=== PATIENT | female | born 1945 | race Caucasian/White ===

== ENCOUNTER 2020-03-27 08:18 | Outpatient (REF) | payer MEDICARE, SELFPAY | END 2020-03-27 08:19 | disposition home or self-care (01) | LOC: HO.WFDLDS 08:18 | PROVIDERS: PCP Internal Medicine; Visit Provider Internal Medicine | DX: Z20.828 Contact with and (suspected) exposure to other viral communicable diseases (principal) | CPT/HCPCS: C9803; U0003 ==

== ENCOUNTER 2020-04-24 09:19 | Outpatient (REF) | payer MEDICARE, SELFPAY | END 2020-04-24 09:20 | disposition home or self-care (01) | LOC: HO.WFDLDS 09:19 | PROVIDERS: Visit Provider Internal Medicine | DX: Z20.822 Contact with and (suspected) exposure to COVID-19 (principal) | CPT/HCPCS: 36415; C9803; U0003 ==

== ENCOUNTER 2025-01-07 13:49 | Outpatient (REF) | payer MEDICARE, SELFPAY ==
[2025-01-07 17:35] LABS: Hematocrit 34.1 % (37.0-47.0); Hemoglobin 11.6 g/dl (12.0-16.0); Mean Corpuscular HGB Conc 34.0 g/dl (31.0-35.0); Mean Corpuscular Hemoglobin 31.0 pg (27.0-33.0); Mean Corpuscular Volume 91.2 fL (80.0-98.0); NRBC Abs Auto 0.000 X10*3/uL (0.0-0.012); NRBC Pct Auto 0.0 /100WBC (0.0-0.2); Platelet Count 381 X10*3/uL (160-400); Red Blood Count 3.74 X10*6/uL (4.20-5.50); White Blood Count 4.9 X10*3/uL (4.8-10.8)
[2025-01-07 17:59] LABS: Alanine Aminotransferase 14 U/L (0-31); Albumin Level 4.5 g/dL (3.5-5.0); Alkaline Phosphatase 57 U/L (39-117); Anion Gap 13 (12-20); Aspartate Amino Transferase 29 U/L (5-31); Blood Urea Nitrogen 15 mg/dL (9-16); Calcium 9.0 mg/dL (8.4-10.2); Carbon Dioxide 27 mmol/L (22-29); Chloride 102 mmol/L (96-108); Cholesterol 194 mg/dL (<200); Estimated Glomerular Filt Rate > 60; HDL Cholesterol 80 mg/dL (>40); Potassium 3.8 mmol/L (3.3-5.1); Sodium 138 mmol/L (135-145); Total Protein 7.3 g/dL (6.5-8.0); Triglycerides 53 mg/dL (<150)
[2025-01-07 18:22] LABS: Folate 11.4 ng/mL (> or = 4.0); Vitamin B12 1344 pg/mL (200-900)
== END 2025-01-07 13:50 | disposition home or self-care (01) ==
LOC: HO.WFDLDS 13:49
PROVIDERS: PCP Nurse Practitioner Family; Visit Provider Nurse Practitioner Family
DX: Z00.00 Encounter for general adult medical examination without abnormal findings (principal); I25.10 Atherosclerotic heart disease of native coronary artery without angina pectoris; M85.80 Other specified disorders of bone density and structure, unspecified site; N95.2 Postmenopausal atrophic vaginitis; M85.89 Other specified disorders of bone density and structure, multiple sites; M79.662 Pain in left lower leg; M79.89 Other specified soft tissue disorders; L03.116 Cellulitis of left lower limb; Z23 Encounter for immunization; Z78.0 Asymptomatic menopausal state; Z76.89 Persons encountering health services in other specified circumstances; Z92.89 Personal history of other medical treatment; Z80.0 Family history of malignant neoplasm of digestive organs; Z98.890 Other specified postprocedural states; Z13.1 Encounter for screening for diabetes mellitus
CPT/HCPCS: 36415; 80053; 80061; 82306; 82570; 82607; 82746; 83036; 84443; 85027; 90471; 90656; 96127; 99202

== ENCOUNTER 2025-01-07 13:49 | Outpatient (AMB) | payer MEDICARE, SELFPAY ==
--- NOTE | 2025-01-07 13:53 | MHC.PC.OV ---
Vital Signs 01/07/25 14:06 Height 5 ft 2 in Weight 142 lb 4 oz BMI 26.0 BP 138/76 Blood Pressure Location Lt brachial Position Sitting Respiration 13 Pulse 72 Pulse Source Pulse Oximeter Temp 97.1 F Temp Source Oral Pulse Oximetry (%) 100 Oxygen Delivery Method Room Air Intake Visit Reasons: new patient appt/ 2pm Tuesday01/07/25 Intake Note: New patient to establish care. Ceramic Tiler Required: No Allergies Penicillins Allergy (Mild, Verified 01/07/25 15:31) Rash Medication List - Last Reviewed 01/07/25 by Krunal Herbert MA estradiol (Yuvafem) 10 mcg vaginal 2XW estradiol 1 patch transdermal 2XW progesterone micronized 100 mg PO QPM simvastatin 40 mg PO BEDTIME Tobacco use date assessed: 01/07/25 Fall risk assessment: 1 Fall in past year (trip over a stool) Last assessed Fall Risk: 01/07/25 Dental Screening Dental Screen Date: 01/07/25 Did you have a dental visit in the last 12 months?: Yes Did you have a dental problem in the last 6 months where you did not have access to dental care?: No Was dental information given to patient?: Patient has dentist HPI HPI Comments History of Present Illness Details 79 y/o F with menopause, atrophic vaginitis, hx of NSTEMI, CAD s/p CABG, Osteopenia, hx of compression fractures, fhx pancreatic ca SurgHx: coronary bypass graft with ZARCO to LAD 2016, tubal ligation, bladder sling, FHx: Mom pancreatic ca, Dad [place], Bro [place] SocHx: Works at [employer], , Health Maintenance: See scanned preventative medicine assessment with personalized health plan and screening schedule. Colon: 2020 Mammo 02/2024 wnl DEXA 12/2023 PAP Vaccines: Tdap 2023, Flu 01/07/25 AAA screen EKG: [place] of Care: Cards, Dr Rubin FURNACE CHARGER History of Present Illness The patient is a 79-year-old female presenting with Establish Care and Evaluation of Fall-related Injury. Previous PCP [facility], records rec'd and reviewed. Coronary Artery Disease: - CABG in 2017 - Maintained on simvastatin - active w/ Dr Rubin Menopause with Atrophic Vaginitis: - Estradiol use, patch discontinued - Needs refill Fall-related Injury with Laceration and Bruising, LLE - Injury 3 weeks ago - Persistent soreness and warmth - Morning ankle swelling Review of Systems - Cardiovascular: Denies chest pain, shortness of breath. - Musculoskeletal: Reports bruise, soreness, and swelling in fall-injured area. - Skin: Reports injury site warmth. - Allergic/Immunologic: History of penicillin allergy causing rash. - Genitourinary: Reports vaginal estradiol use. Physical Exam General: Well developed, well nourished, in no acute distress. Appears stated age. Head: Normocephalic, atraumatic. Eyes: Pupils are equal, round and reactive to light and accommodation. Conjunctivae are clear. Lungs: Clear to auscultation bilaterally. No rales, rhonchi or wheeze noted. Good air flow in all munoz. Heart: Regular rate and rhythm. No murmurs, click, rubs or gallops are noted. Musculoskeletal: Joints are nontender, without swelling, redness, or effusions. Pulses: Peripheral pulses are decreased on the left side. Normal PP on R Extremities: No clubbing, cyanosis. Swelling noted in the left ankle, with bruising and warmth. No edema noted elsewhere. Large skin flap injury to anterior Left lower leg w/ erythema and warmth. Psych: Mood and affect appropriate. Results Pendng Discussion Notes I discussed the management of the fall-related injury with the patient, emphasizing the potential for underlying infection and the need for further evaluation. We reviewed the risks and benefits of initiating an antibiotic regimen with doxycycline due to her history of penicillin allergy. The potential concern for a clot was addressed, and I recommended an ultrasound to definitively rule out thrombosis. I explained that this should be performed promptly at [facility] or [facility] based on appointment availability. The necessity of keeping the injury site clean, properly covered, and monitored for worsening symptoms was highlighted. She consented to receive a flu shot and is updated on her preventative health measures. We also reviewed the importance of maintaining follow-up care and scheduling any necessary appointments. Patient was given time to ask questions. All questions were answered to their satisfaction. Assessment and Plan 1. Coronary Artery Disease - Continue simvastatin. - Await additional medication approval. - Cont care w/ Dr Ruibn 2. Menopause with Atrophic Vaginitis - Continue vaginal estradiol. - Refill sent 3. Fall-related Injury with Laceration and Bruising - Initiate doxycycline x 7 days - Tdap UtD - Recommend ultrasound to r/o DVT Patient Instructions - Take doxycycline as prescribed with food. - Keep the injury site clean and covered. - Observe for increased redness, swelling, or warmth. - Arrange for an ultrasound at [facility] or [place]. - Receive the flu shot administered today. - Follow preventative care and schedule follow-up appointments. - RTO 4-6 weeks for AWV sooner PRN Consent Patient was informed and verbally consented to the use of an ambient scribe for clinic note documentation during this visit. Total time spent caring for the patient today was 45 minutes. This includes time spent before the visit reviewing the chart, time spent during the visit, and time spent after the visit on documentation, reviewing laboratory results, diagnostic imaging, medications, performing a medically necessary evaluation, counseling on diagnoses, care coordination, ordering appropriate tests, ordering appropriate medications, review of tests performed by other providers, reporting test results with the patient, communication with other healthcare providers. FORMERLY [facility], [facility] Social History (Updated 01/07/25 @ 13:56 by Krunal Herbert MA) Housing: Condominium Alcohol intake: current Alcohol intake frequency: a few times a month Patient Tobacco Use Status: Never used Tobacco e-Cigarette/Vaping Use: Never Used Second Hand Smoke Exposure: No service: No Current occupational status: retired Current occupational exposures/hazards: No Cognitive needs: No Hearing needs: No Vision needs: No Questionnaire PHQ-9 Over the last 2 weeks, how often have you been bothered by any of the following problems? 1. Little interest or pleasure in doing things: not at all 2. Feeling down, depressed, or hopeless: not at all 3. Trouble falling or staying asleep, or sleeping too much: not at all 4. Feeling tired or having little energy: not at all 5. Poor appetite or overeating: not at all 6. Feeling bad about yourself - or that you are a failure or have let yourself or your family down: not at all 7. Trouble concentrating on things, such as reading the newspaper or watching television: not at all 8. Moving or speaking so slowly that other people could have noticed. Or the opposite - being so fidgety or restless that you have been moving around a lot more than usual: not at all 9. Thoughts that you would be better off or of hurting yourself in some way: not at all Total score: 0 Depression Screening Interpretation: Negative Depression Screening Done: Yes 91473 - PHQ-9 Billing: Yes Source: Developed by Drs. Butch Worrell, Noelle Powell, Gonzalo Velasquez and colleagues, with an educational ole from [employer]. Thrive Questionnaire Date Thrive assessed: 01/07/25 I am a: Patient What is your living situation today?: I have a steady place to live Within the past 12 months, did the food you bought not last and you didn't have the money to get more?: Never true Within the past 12 months, did you worry whether your food would run out before you got money to buy more?: Never true Do you have trouble paying for medicines?: No Do you have trouble getting transportation to medical appointments?: No Do you have trouble paying your heating and electricity bill?: No Do you have trouble taking care of your child, family member or friend?: No Do you have trouble with day-to-day activities such as bathing, preparing meals, shopping, managing finances, etc.?: No Are you currently unemployed and looking for a job?: No Are you interested in more education?: No Please select the resources that you would like help with: None Currently or been in a relationship where the following occur: No concerns reported THRIVE Score: 0 AUDIT C Alcohol Use Questionnaire (AUDIT-C) 1. How often do you have a drink containing alcohol?: 2-3 times a week 2. How many drinks containing alcohol do you have on a typical day when you are drinking?: 1 or 2 3. How often do you have six or more drinks on one occasion?: Never Total Score: 3 KORINA-7 AMB Questionnaire KORINA-7 Date KORINA - 7 assessed: 01/07/25 Feeling nervous, anxious, or on edge: 0 = Not at all Not being able to stop or control worryin = Not at all Worrying too much about different things: 0 = Not at all Trouble relaxin = Not at all Being so restless that it is hard to sit still: 0 = Not at all Becoming easily annoyed or irritable: 0 = Not at all Feeling afraid as if something awful might happen: 0 = Not at all Total KORINA-7 score (0-4 normal; 5-9 mild; 10-14 moderate; 15-21 severe): 0 Source: Developed by Drs. Butch Worrell, Noelle Powell, Gonzalo Velasquez and colleagues, with an educational ole from [employer]. KORINA-7 Assessment Billing KORINA-7 Assessment Tool: KORINA-7 Assessment 30453 Physical exam (Primary Care) Vital Signs: Last Vital Signs Temp 97.1 F 01/07/25 14:06 Pulse 72 01/07/25 14:06 Resp 13 01/07/25 14:06 BP 138/76 01/07/25 14:06 Pulse Ox 100 01/07/25 14:06 Oxygen Delivery Method Room Air 01/07/25 14:06 BMI result Body Mass Index 26.0 Tobacco/Smoking Status: Tobacco use Status Tobacco use date assessed 01/07/25 01/07/25 13:56 Patient Tobacco Use Status Never used Tobacco 01/07/25 13:56 e-Cigarette/Vaping Use Never Used 01/07/25 13:56 PHQ-9: PHQ-9 Score PHQ-9: Total score 0 01/07/25 15:19 Depression Screening Interpretation: Negative Thrive Assessment: Date of Thrive Assessment Date Thrive assessed 01/07/25 01/07/25 13:56 Currently or been in a relationship where the following occur: No concerns reported Office Procedures Flu Questionnaire Does the patient have a severe egg allergy?: No Does the patient have severe life threatening allergies?: No Has the patient ever had Guillain-[place] Syndrome?: No Has the patient ever had any past reaction to a flu shot?: No Immunizations Fluarix [id number] (PF) 45 mcg (15 mcg x 3)/0.5 mL IM syringe Performing Provider: GIA Ac Performing Location: [facility] Administered by: Krunal Herbert MA on 01/07/25 15:19 Dose Route Admin Location Dispensed Lot Number Expiration Date [facility] Business Machine Mechanic 0.5 mL IM Left Deltoid 0.5 mL [id number] 09/24/25 [id number] YASSSU VIS Given Date VIS Provided VIS Publication Date 01/07/25 Single Vaccine 24 Eligibility Eligibility Date Funding Source Not [facility] Eligible 01/07/25 Private Coding Level of Care Code New Pt Level 4 (58217) Complex EM visit Add On G2211 Diagnoses Encounter to establish care with new provider Z76.89 Atrophic vaginitis N95.2 Coronary artery disease involving [place] coronary artery of [place] heart without angina pectoris I25.10 Coronary Disease-Associated Artery/Lesion type: [place] artery [place] vs. transplanted heart: [place] heart Associated angina: without angina S/P CABG x 3 Z95.1 Family history of pancreatic cancer Z80.0 Osteopenia of multiple sites M85.89 Osteopenia location: multiple sites Menopause Z78.0 History of colonoscopy Z98.890 History of mammogram Z92.89 Pain and swelling of left lower leg M79.662; M79.89 Laboratory exam ordered as part of routine general medical examination Z00.00 Influenza vaccination administered at current visit Z23 Cellulitis of left lower extremity L03.116 Additional Codes KORINA-7 Assessment Billing - KORINA-7 Assessment Tool: KORINA-7 Assessment 63624 ([id number]) PHQ-9 - 52962 - PHQ-9 Billing: Yes ([id number]) Assessment & Plan Assessment & Plan (1) Encounter to establish care with new provider: Code(s): Z76.89 - Persons encountering health services in other specified circumstances (2) Atrophic vaginitis: Code(s): N95.2 - Postmenopausal atrophic vaginitis Category: Medical (3) CAD (coronary artery disease): Code(s): I25.10 - Atherosclerotic heart disease of [place] coronary artery without angina pectoris Category: Medical Qualifiers: Coronary Disease-Associated Artery/Lesion type: [place] artery [place] vs. transplanted heart: [place] heart Associated angina: without angina Qualified Code(s): I25.10 - Atherosclerotic heart disease of [place] coronary artery without angina pectoris (4) S/P CABG x 3: Onset Date: ~2017 Comment: coronary bypass graft with ZARCO to LAD 2017, Code(s): Z95.1 - Presence of aortocoronary bypass graft Category: Medical (5) Family history of pancreatic cancer: Code(s): Z80.0 - Family history of malignant neoplasm of digestive organs Category: Medical (6) Osteopenia: Code(s): M85.80 - Other specified disorders of bone density and structure, unspecified site Category: Medical Qualifiers: Osteopenia location: multiple sites Qualified Code(s): M85.89 - Other specified disorders of bone density and structure, multiple sites (7) Menopause: Code(s): Z78.0 - Asymptomatic menopausal state Category: Medical (8) History of colonoscopy: Onset Date: ~2019 Code(s): Z98.890 - Other specified postprocedural states Category: Medical (9) History of mammogram: Onset Date: ~02/2024 Code(s): Z92.89 - Personal history of other medical treatment Category: Medical (10) Pain and swelling of left lower leg: Code(s): M79.662 - Pain in left lower leg; M79.89 - Other specified soft tissue disorders Category: Medical (11) Laboratory exam ordered as part of routine general medical examination: Code(s): Z00.00 - Encounter for general adult medical examination without abnormal findings Category: Medical (12) Influenza vaccination administered at current visit: Code(s): Z23 - Encounter for immunization (13) Cellulitis of left lower extremity: Code(s): L03.116 - Cellulitis of left lower limb Plan . Orders: Orders US venous duplex LE LT Today M79.662 - Pain in left lower leg, M79.89 - Other specified soft tissue disorders Complete Blood Count no Diff Today I25.10 - Atherosclerotic heart disease of [place] coronary artery without angina pectoris, M85.80 - Other specified disorders of bone density and structure, unspecified site, Z00.00 - Encounter for general adult medical examination without abnormal findings Lipid Panel Today I25.10 - Atherosclerotic heart disease of [place] coronary artery without angina pectoris, M85.80 - Other specified disorders of bone density and structure, unspecified site, Z00.00 - Encounter for general adult medical examination without abnormal findings Vitamin B12 and Folate Today I25.10 - Atherosclerotic heart disease of [place] coronary artery without angina pectoris, M85.80 - Other specified disorders of bone density and structure, unspecified site, Z00.00 - Encounter for general adult medical examination without abnormal findings Vitamin D 25-OH Total Today I25.10 - Atherosclerotic heart disease of [place] coronary artery without angina pectoris, M85.80 - Other specified disorders of bone density and structure, unspecified site, Z00.00 - Encounter for general adult medical examination without abnormal findings MM tomosynthesis screening BI Today Z12.31 - Encounter for screening mammogram for malignant neoplasm of breast Influenza [id number] Immunization Today Z23 - Encounter for immunization Comprehensive Met. Panel Today I25.10 - Atherosclerotic heart disease of [place] coronary artery without angina pectoris, M85.80 - Other specified disorders of bone density and structure, unspecified site, Z00.00 - Encounter for general adult medical examination without abnormal findings Hemoglobin A1c Today I25.10 - Atherosclerotic heart disease of [place] coronary artery without angina pectoris, M85.80 - Other specified disorders of bone density and structure, unspecified site, Z00.00 - Encounter for general adult medical examination without abnormal findings Microalbumin, Random (w Creat) Today I25.10 - Atherosclerotic heart disease of [place] coronary artery without angina pectoris, M85.80 - Other specified disorders of bone density and structure, unspecified site, Z00.00 - Encounter for general adult medical examination without abnormal findings TSH reflex Free T4 Today I25.10 - Atherosclerotic heart disease of [place] coronary artery without angina pectoris, M85.80 - Other specified disorders of bone density and structure, unspecified site, Z00.00 - Encounter for general adult medical examination without abnormal findings Medications: New doxycycline hyclate 100 mg PO BID 14 caps 0RF 7 days estradiol (Yuvafem) 10 mcg vaginal 2XW 24 tabs 2RF mecobalamin (vitamin B12) 1,000 mcg PO DAILY calcium carb-mag oxide-vit D3 400-167-133 mg-mg-unit (Calcium Magnesium plus D) 1 tab PO DAILY 90 tabs 0RF Patient Instructions: Walk-In Care (Urgent Care): We Make it Easy Walk-in for urgent medical issues such as: ? Seasonal Allergies ? Insect Bites ? Cough ? Diarrhea ? Acute Asthma Attacks ? Back, Knee or Joint Pain ? Ear Infection ? Fever without a Rash ? Headaches ? Nausea ? [place], Rash or Skin Irritation ? Sore Throat ? Sports Physicals ? Vomiting Most insurances are accepted. Patients do not need to be part of the [place] [facility] to seek care at the walk-in clinic. Locations [address], [place] Open Tuesday through Tuesday 8am-5pm *Hours may vary due to staffing availability. To confirm Walk-In Care hours please call. [facility] [address], [place] [address] ? [phone] [facility] Walk-In Care in [place] provides services to ages 18 and over. Open Tuesday-Tuesday: 7 a.m. to 5 p.m. and Tuesday: 9 a.m. to 3 p.m.* *Hours may vary due to staffing availability. To confirm Walk-In Care hours in [place], please call [phone]. [address] [place] [address] ? [phone] [facility] Walk-In Care in [place] provides services to ages 12 and over. Open Tuesday-Tuesday: 8 a.m. to 5 p.m. Hours may vary due to staffing availability. To confirm Walk-In Care hours in [place], please call [phone]. LABORATORY SERVICES: [facility] Lab ? Primary Location [address] [place] [address] Tuesday through Tuesday 6:00 AM ? 5:00 PM Tuesday 7:00 AM ? 11:00 AM* [phone] The [facility] Lab is centrally located near the front entrance of the [facility] for easy outpatient access. Convenient parking is provided for outpatients. *Hours may vary due to staffing availability. To confirm Laboratory hours for any location, please call [phone]. Offsite Location For your convenience, we offer offsite laboratory draw stations at the following locations: [address] [place] [address] ? [address], [address] Tuesday through Tuesday 7:30 AM ? 1:00 PM* [phone] *Hours may vary due to staffing availability. To confirm Laboratory hours for any location, please call [phone]. [place] ? [address] Tuesday through Tuesday 6:00 AM ? 3:30 PM* Tuesday 6:30 AM ? 3 PM* [phone] *Hours may vary due to staffing availability. To confirm Laboratory hours for any location, please call [phone] [place] [address] Tuesday through Tuesday 7:30 AM ? 4:00 PM* [phone] *Hours may vary due to staffing availability. To confirm Laboratory hours for any location, please call [phone] [place] [address] Tuesday through 9:00 AM ? 4:00 PM* *Hours may vary due to staffing availability. To confirm Laboratory hours for any location, please call [phone]. Appointments are not necessary. Walk-ins are welcome. Like all the departments throughout the [facility], our Lab undergoes frequent reviews to ensure the quality and accuracy of test results, and our staff takes special pride in its status as a nationally accredited facility. Patient Portal: [facility] ONE PATIENT. ONE RECORD. BETTER CARE. [facility] has a fully integrated, cutting-edge mobile electronic health information system that has revolutionized the way we care for our patients and manage our organization. This system improves communication and coordination enabling us to provide safe, higher-quality care, and an overall positive experience for staff and patients. Our first priority, as always, is to deliver the highest quality care possible. The system is running in the background supporting that priority. This portal is for all [facility] services and practices. If you are experiencing any technical difficulties with enrolling or logging into the Patient Portal please complete the [facility] Patient Portal Technical Support Form. [facility] now offers a new secure on-line interactive tool for patients to review their health information ? ?Patient Portal. This interactive web portal will enable patients and their families to take an active role in their care by providing easy, secure access to their health information via the internet. The Patient Portal provides patients with instant access to their health information, including laboratory results, medications, allergies, demographic information, visit history, and more. In addition to managing their own care, parents and health care proxies with authorized consent will appreciate the ability to access the records of those individuals for whom they provide care. Please note: if you wish to gain access (Proxy) to another patient?s portal, you will be required to come to the Medical Records Department in person at [facility]. Both the patient giving proxy access and the proxy will need to provide photo identification and complete the appropriate authorization. The Patient Portal also allows track their appointments online. The [facility] Patient Portal also saves patients time by allowing them to submit updates to their demographic and contact information prior to their visits. Portal email notifications will also alert patients to any new activity on their portal, such as test results and new appointments. In order to initially enroll in the [facility] Patient Portal, you will need to enter some required information including the following: your [facility] Medical Record number your personal home email address name date of Please note: In order to enroll in the [facility] Patient Portal, we need to have your email address on file in your electronic medical record. ?The email address needs to be specific for one person (yourself) in order for your Portal enrollment to be successful. ?You can update your email address in person with our Registration staff when you are registering for a hospital visit. ?Otherwise, you will need to come to the Health Information Management (Medical Records) Department at [facility]. ?We are open from Tuesday ? Tuesday from 7:30 a.m. ? 4:30 p.m. ?You will be required to present a photo id. Once you have successfully enrolled in the Patient Portal, you will receive a one-time user id and password for the Portal, sent to your email address. ?This will allow you to log into the Patient Portal within 99 hrs and reset your own logon id and password, and define personal security questions. ?Once your permanent login and password have been set, you can log into the [facility] Patient Portal at any time via the blue button above or from the Portal [employer] button on any page of the [facility] website. [facility] and [facility] encourage all of our patients to enroll in Patient Portal as it presents a valuable opportunity for patients and their families to actively participate in their care and stay healthy Welcome to [facility]. ?We look forward to working with you.
[2025-01-07 14:06] VITALS: BP 138/76; PULSE 72; RESP 13; TEMP 36.2; O2SAT 100; BMI 26.0
== END 2025-01-07 15:29 | disposition home or self-care (01) ==
LOC: HO.HMCFM 13:50
PROVIDERS: PCP Nurse Practitioner Family; Visit Provider Nurse Practitioner Family
DX: Z76.89 Persons encountering health services in other specified circumstances (principal); N95.2 Postmenopausal atrophic vaginitis; I25.10 Atherosclerotic heart disease of native coronary artery without angina pectoris; Z95.1 Presence of aortocoronary bypass graft; Z80.0 Family history of malignant neoplasm of digestive organs; M85.89 Other specified disorders of bone density and structure, multiple sites; Z78.0 Asymptomatic menopausal state; Z98.890 Other specified postprocedural states; Z92.89 Personal history of other medical treatment; M79.662 Pain in left lower leg; M79.89 Other specified soft tissue disorders; Z00.00 Encounter for general adult medical examination without abnormal findings; Z23 Encounter for immunization; L03.116 Cellulitis of left lower limb

== ENCOUNTER → 2025-01-07 16:15 | Outpatient (BNV) | payer MEDICARE, SELFPAY | PROVIDERS: PCP Nurse Practitioner Family; Visit Provider Radiology Diagnostic Radiology | DX: M79.662 Pain in left lower leg (principal) | CPT/HCPCS: 93971 ==

== ENCOUNTER 2025-01-07 16:19 | Outpatient (REF) | payer MEDICARE, SELFPAY ==
--- NOTE | ~2025-01-07 | US_ITS ---
CLINICAL HISTORY: M79.662 - Pain in left lower leg --- Additional Notes or Special Instructions: DVt R o Left lower extremity venous duplex ultrasound Comparison: None available Findings: The visualized deep veins are fully compressible with normal flow. There is a popliteal cyst measuring 1.6 x 0.6 x 1.4 cm. Impression: No deep vein thrombosis. This document has been electronically signed by: Julia Vu MD on 01/07/2025 17:02:14
== END 2025-01-07 16:20 | disposition home or self-care (01) ==
LOC: HO.US 16:19
PROVIDERS: PCP Nurse Practitioner Family; Visit Provider Nurse Practitioner Family
DX: M79.662 Pain in left lower leg (principal); R60.0 Localized edema
CPT/HCPCS: 93971

== ENCOUNTER 2025-02-13 13:06 | Outpatient (AMB) | payer MEDICARE, SELFPAY ==
--- NOTE | 2025-02-13 13:15 | A.OFFVIS_ITS ---
Intake Vital Signs 02/13/25 13:34 Height 5 ft 2 in Weight 136 lb BMI 24.9 BP 124/80 Blood Pressure Location Rt brachial Position Sitting Respiration 13 Pulse 74 Pulse Source Pulse Oximeter Temp 98.2 F Temp Source Temporal Artery Scan Pulse Oximetry (%) 96 Oxygen Delivery Method Room Air Intake Visit Reasons: 4-6 weeks AWV 30min Intake Note: Whit presents in the office today for her medicare wellness exam. Systems Integrator Required: No Allergies Penicillins Allergy (Mild, Verified 02/13/25 13:22) Rash Post menopausal: Yes Do you need a note to return to daycare/school/sports/work: No HPI HPI Comments History of Present Illness Details Here today for AWV. The Medicare Annual Wellness Visit (AWV) is a yearly appointment with a health professional to identify health risks and help reduce them and to create or upd ate a personalized prevention plan. During a Medicare AWV, health professionals should also review any current opioid prescriptions, detect any cognitive impairment, and establish or update medical and family history. 79 y/o F with menopause, atrophic vagini tis, hx of NSTEMI, CAD s/p CABG, Osteopenia, hx of compression fractures, fhx pancreatic ca SurgHx: coronary bypass graft with ZARCO to LAD 2016, tubal ligation, bladder sling, FHx: Mom pancreatic ca, Dad PR, Bro PR SocHx: Works at [employer], , Health Maintenance: See scanned preventative medicine assessment with [facility] health plan and screening schedule. 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 [place] of Care: Cards, Dr Rubin PERSONAL LOAN SPECIALIST Visual Acuity: Fall 2024, annual visits, Progressive Glasses Hearing Screening: no issues ACP: does not have HCP or Living will; 5 wishes MOLST and HCP forms provided today along w/ education Dietary/Nutrition/Exercise Edu provided: Y During the course of the visit the patient was educated and counseled about appropriate screening and preventative services. Patient instructions were provided to the patient in written or electronic format. I have reviewed and verified the above information. History of Present Illness The patient is a 79-year-old female presenting for an Annual Medicare wellness visit. Bifascicular block: - The patient has a history of a myocard ial infarction. - An EKG from 2021 showed a left anterio r fascicular block. - Today's EKG reveals the persistent lef t anterior fascicular block and a new right bundle branch block. - She denies any current chest pain. - She reports occasional palpitations bu t her jigger operator was not concerned about them. - She has a history of being overmedicat ed with metoprolol, which was discontinued, and she now only takes baby aspirin. - Her heart rate averages in the mid-70s , and she denies feeling weak or faint. Hypercholesterolemia: - The patient's LDL was 104 mg/dL on rec ent labs while taking simvastatin 40 mg. - Her total cholesterol was 194 mg/dL an d HDL was 80 mg/dL. - She has previously tried and failed Ze tia, which caused weight loss, and Lipitor, which was not effective. - The jigger operator, Dr. Rubin, had previ ously suggested starting injectable cholesterol medication, but there has been no follow-up on this, possibly due to insurance denial. Mild anemia: - Recent CBC from January 07, 2025, show ed mild anemia with a hemoglobin of 11.6 g/dL and hematocrit of 34.1%. - It is unknown if this is a chronic iss ue for the patient. - Denies overt bleeding Osteopenia: - The patient has a history of compressi on fractures, one from yoga and another from carrying a heavy object. - A bone density scan in 2023 revealed o steopenia. - She takes 600 mg of calcium daily, and her vitamin D level is normal. Past Medical History - History of myocardial infarction - Left anterior fascicular block, diagno sed in 2021 - History of compression fractures - Osteopenia, diagnosed in 2023 - Monovision status post-LASIK Past Surgical History - LASIK surgery in one eye approximately 25 years ago Family History - Pancreatic cancer - Denies family history of colon cancer Social History - Functional status: Reports being very active. - Substance use: None - Living situation: Lives with her son. Health Maintenance - Vaccinations are up to date. - Schedule annual screening mammogram th is February; patient has the order and will request results be sent to this office. - No further screening colonoscopies are recommended. - Provided healthcare proxy and MOLST fo faye, along with a Five Wishes booklet for advanced care planning. - Patient will obtain separate pairs of glasses for distance and reading to improve vision and safety, as she does not tolerate progressives well. Review of Systems - General: Reports feeling well. - Cardiovascular: Reports occasional pal pitations. Denies chest pain, weakness, or feeling faint. - GI/: Reports normal bowel and bladde r function. - Musculoskeletal: Reports back pain whe n lying flat. Physical Exam General: Well developed, well nourished, in no acute distress. Appears stated age. Head: Normocephalic, atraumatic. Eyes: Pupils are equal, round and reactive to light and accommodation. Conjunctivae are clear. Scleras nonicteric bilat. Vision grossly normal. Ears: TMs clear AU, EACS WNL Nose: Patent, without discharge. Neck: No carotid bruit bilat. Supple, no adenopathy or thyromegaly. Breast: Edu on SBE. Mammogram last February, next due this February. Lungs: Clear to auscultation bilaterally. No rales, rhonchi or wheeze noted. Good air flow in all munoz. Heart: Regular rate and rhythm. No murmurs, click, rubs or gallops are noted. EKG shows right bundle branch block with a left anterior fascicular block. Abdomen: Bowel sounds present in all quadrants. The abdomen is soft, nontender, with no masses or organomegaly noted. No hernias are noted. : Deferred. Reviewed recommendations for routine PERSONAL LOAN SPECIALIST. Pulses: Peripheral pulses are equal and palpable bilaterally. Extremities: No clubbing, cyanosis nor edema is noted. Well healing skin tear L anterior tyler, scab present. Neurologic: Gait and station normal. Cranial Nerves 2-12 intact. Motor strength grossly symmetrical and intact. No sensory loss. Balance normal. Skin: No rashes, ulcers, or lesions noted. Turgor is good. Skin color is good. Hair and nails are without abnormalities. Psych: Normal eye contact, affect and mood appropriate, and normal interactions. Patient is alert and appropriate to context. Results - EKG: Right bundle branch block (new) w ith a left anterior fascicular block (old). - Labs (01/07/2025): - A1c: 5.3% - CBC: Mild anemia with RBC 3.74, Hemogl obin 11.6 g/dL, Hematocrit 34.1%. MPV 9.0. - Chemistry: Normal electrolytes and kid macho function. - Liver function tests: Normal. - Lipid Panel: Total cholesterol 194 mg/ dL, LDL 104 mg/dL, HDL 80 mg/dL. - Vitamins/Hormones: Vitamin B12 elevate d at 1,344 pg/mL (on supplementation), Vitamin D normal at 65.8 ng/mL, TSH and folate normal. - Urinalysis: Urine microalbumin normal. Medical Decision Making The patient is a 79-year-old female here for a Medicare wellness visit with several findings. The most significant is a new right bundle branch block on EKG, in addition to her known left anterior fascicular block, forming a new bifascicular block. Given her history of myocardial infarction, this is concerning, although the absolute risk of progression to complete heart block is low. The patient is asymptomatic, with no chest pain, weakness, syncope and her heart rate is not bradycardiac, which is reassuring. However, due to the new finding, I will refer her to her jigger operator, Dr. Rubin, for further evaluation, which may include further testing. Labs reveal a mild anemia, which is a new finding. This is very mild at present, so the plan is to recheck her CBC with iron studies in six months to establish a trend rather than initiating a full workup now. Her hypercholesterolemia is suboptimally controlled on simvastatin 40mg, with an LDL of 104. While awaiting cardiology's decision on injectable therapies, I have recommended the patient try an [id number] supplement, Mcleod bergamot, which has shown clinical benefit in lowering LDL when paired with a statin. We also reviewed health maintenance. She will proceed with her annual mammogram. Given her age and lack of risk factors, we agree to cease further screening colonoscopies. For her osteopenia, she will continue calcium and we will repeat her bone density scan in 2025. Finally, I provided her with advanced care planning documents to review. Plan 1. Bifascicular Block - The current EKG and this note will be faxed to the patient's jigger operator, Dr. Reyes, for further evaluation and management. - The patient was advised that Dr. Reyes 's office will contact her directly with the next steps, which may include an earlier appointment or additional testing like a stress test. - The patient was educated on the small (<5%) risk of progression to complete heart block requiring a pacemaker. - The patient was counseled to seek imme diate attention for symptoms such as chest pain, a persistent heart rate below 60, feeling faint, or extreme weakness. 2. Hypercholesterolemia - The patient will continue taking simva statin 40 mg daily. - Recommended starting the herbal supple ment Mcleod bergamot 1000 mg daily to help lower cholesterol while awaiting further management from cardiology regarding injectable medications. - Labs including a lipid panel will be r epeated in 6 months. 3. Mild Anemia - A repeat CBC, ferritin, and iron studi es will be checked in 6 months to monitor the mild anemia. - A follow-up office visit is scheduled in 6 months to review these lab results. 4. Osteopenia - Continue current calcium supplementati on. - No extra Vitamin D supplementation is needed as her level is normal. - Plan to repeat bone density screening in 2025 to monitor for progression to osteoporosis. Patient Instructions - My office will send your new EKG resul ts to your heart doctor, Dr. Reyes. Please expect his office to call you to discuss the next steps. If you do not hear from them within a week, please contact our office. - Go to the emergency room if you have a ny chest pain, feel very weak or like you are going to faint, or if your heart rate stays below 60. - Start taking Mcleod bergamot, 1000 mg once a day. You can buy this over the counter or on [employer]re[employer]. Make sure it is not mixed with other ingredients. - You have an order for lab work to be d one in 6 months. Please go to the lab about one week before your next appointment with me. - Be careful with the scab on your leg. You can cover it with a band-aid or a taller sock to prevent it from getting caught and opening up. - You are due for your yearly mammogram in February. You can use the order you already have. - You should plan to get another bone de nsity scan in 2025. - Please review the healthcare proxy and 'Five Wishes' paperwork I gave you to think about your future healthcare wishes. Consent Advanced care planning was discussed with the patient. The purpose of documents like a MOLST form and designating a healthcare proxy was explained. The patient was given a blank healthcare proxy form, a MOLST form, and a 'Five Wishes' booklet to review and complete at her leisure. Patient was informed and verbally consented to the use of an ambient scribe for clinic note documentation during this visit. An additional 30 minutes was spent addressing the problem(s) noted at todays visit. This includes time spent before the visit reviewing the chart, time spent during the visit, and time spent after the visit on documentation reviewing laboratory results, diagnostic imaging, medications, performing a medically necessary evaluation, counseling on diagnoses, care coordination, ordering appropriate tests, ordering appropriate medications, review of tests performed by other providers, reporting test results with the patient, communication with other healthcare providers. [facility] Social History (Updated 02/13/25 @ 13:25 by Elsa Gonzales [facility]) Housing: Condominium Alcohol intake: current Alcohol intake frequency: a few times a month Patient Tobacco Use Status: Never used Tobacco e-Cigarette/Vaping Use: Never Used Second Hand Smoke Exposure: No service: No Current occupational status: retired Current occupational exposures/hazards: No Cognitive needs: No Hearing needs: No Vision needs: No Questionnaire Medicare Wellness Checkup What [age] What gender do you identify with?: female During the past 4 weeks, how much have you been bothered by emotional problems such as feeling anxious, depressed, irritable, sad or downhearted, and blue?: not at all During the past 4 weeks, has your physical & emotional health limited your social activities with family, friends, neighbors, or groups?: not at all During the past 4 weeks, how much bodily pain have you generally had?: no pain During the past 4 weeks, was someone available to help you if you needed & wanted help?: yes, as much as I wanted During the past 4 weeks, what was the hardest physical activity you could do for at least 2 minutes?: moderate (Walking and Yoga) Can you get to places out of walking distance without help? (For eg., can you travel alone on buses, taxis or drive your car?): Yes Can you go shopping for groceries or clothes without someone's help?: Yes Can you prepare your own meals?: Yes Can you do your housework without help?: Yes Because of any health problems, do you need the help of another person with your personal care needs such as eating, bathing, dressing or getting around the house?: No Can you handle your own money without help?: Yes During the past 4 weeks, how would you rate your health in general?: excellent During the past 4 weeks how have things been going for you?: pretty well Are you having difficulties driving your car?: no Do you always fasten your seat belt when you are in a car?: yes, usually During past 4 weeks, have you been bothered by the following: never: Falling or dizzy when standing up, Sexual problems?, Trouble eating well?, Teeth or denture problems?, Problems using the telephone? and Tiredness or fatigue? Have you fallen 2 or more times in the past year?: No Are you afraid of falling?: No Are you a smoker?: no During the past 4 weeks, how many drinks of wine, beer, or other alcoholic beverages did you have?: 2-5 drinks per week Do you exercise for about 20 minutes 3 or more times a week?: yes, all the time Have you been given information to help with the following?: no: Hazards in your house that might hurt you? and no: Keeping track of your medications? How often do you have trouble taking medicines the way you have been told to take them?: I always take medicine as prescribed How confident are you that you can control & manage most of your health problems?: very confident What is your race?: White Mini Mental State Exam (MMSE) Orientation What is the (year) (season) (date) (day) (month)?: year, season, date, day and month Where are we (state) (county) (town or city) (hospital) (floor)?: state, county, town or city, hospital/clinic and floor Registration Name of 3 unrelated objects clearly and slowly, then ask patient to repeat all 3 of them. (1st repeat determines score. Make sure they can repeat all three): object 1, object 2 and object 3 Attention & Calculation (CHOOSE ONE) Ask pt to begin with 100 & count backward by 7. Stop after 5 repeats. If pt cannot ask them to spell the word WORLD backward.: 93, 86, 79, 72 and 65 Spell WORLD backwards (DLROW): 5 letters Recall Ask patient to repeat the 3 items from question #3.: object 1, object 2 and object 3 Language Show patient a wristwatch & ask what it is. Repeat for pencil.: watch and pencil Ask the patient to repeat the phrase 'No ifs, ands, or buts' after you.: correct Ask the patient to 'take a piece of paper with their right hand' 'fold paper in half' 'place paper on floor': take paper in right hand, fold paper in half and place paper on floor Print the sentence 'CLOSE YOUR EYES' on a piece. If patient actually closes eyes then score.: followed written direction Give patient a blank piece of paper & ask to write a sentence. Score if it contains a noun & verb.: sentence contains subject and verb Score Score: 34 Activity of Daily Living Bathing - sponge bath, tub bath or shower: receives no assistance (gets in/out by self, if usual bathing means Dressing - getting clothes from closets & drawers, including inner/outer garments & fasteners.: gets clothes & gets completely dressed without help Toileting - going to the 'toilet room' for urine/bowel elimination & cleaning self/arranging clothes: goes to toilet room, cleans self, arranges clothes without help Transfer: moves in & out of bed and chair without help (may use support object) Continence: controls urination/bowel movements completely by self Feeding: feeds self without help Total Score: 0 Information obtained from: patient Using telephone: independent Traveling: independent Shopping: independent Preparing meals: independent Housework: independent Taking medicine: independent Managing money: independent Physical Exam Vital Signs: Last Vital Signs Temp 98.2 F 02/13/25 13:34 Pulse 74 02/13/25 13:34 Resp 13 02/13/25 13:34 BP 124/80 02/13/25 13:34 Pulse Ox 96 02/13/25 13:34 Oxygen Delivery Method Room Air 02/13/25 13:34 BMI result Body Mass Index 24.9 Office Procedures Vision Screening Right Eye: 20/50 Left Eye: 20/100 Bilateral: 20/50 Color: Pass 97848 - Vision Screening EKG [id number], Complete Results AMB Hemoglobin A1c AMB Hemoglobin A1c 5.3 % Last Edit by Elsa Gonzales CMA on 02/13/25 13:49 Assessment & Plan Assessment & Plan (1) Encounter for subsequent annual wellness visit (AWV) in Medicare patient: Onset Date: ~02/13/25 Code(s): Z00.00 - Encounter for general adult medical examination without abnormal findings (2) ACP (advance care planning): Onset Date: ~02/13/25 Code(s): Z71.89 - Other specified counseling (3) History of mammogram: Onset Date: ~02/2024 Code(s): Z92.89 - Personal history of other medical treatment (4) History of colonoscopy: Onset Date: ~2019 Comment: no future screenings Code(s): Z98.890 - Other specified postprocedural states (5) RBBB (right bundle branch block with left anterior fascicular block): Onset Date: ~02/13/25 Code(s): I45.2 - Bifascicular block (6) CAD (coronary artery disease): Code(s): I25.10 - Atherosclerotic heart disease of curyung coronary artery without angina pectoris Qualifiers: Coronary Disease-Associated Artery/Lesion type: [place] artery [place] vs. transplanted heart: [place] heart Associated angina: without angina Qualified Code(s): I25.10 - Atherosclerotic heart disease of cur[place]ung coronary artery without angina pectoris (7) Mild anemia: Code(s): D64.9 - Anemia, unspecified Plan . Orders: Orders AMB Vision Screening Today Z01.00 - Encounter for examination of eyes and vision without abnormal findings Complete Blood Count no Diff 6 Months D64.9 - Anemia, unspecified, I25.10 - Atherosclerotic heart disease of [place] coronary artery without angina pectoris IRON PROFILE 6 Months D64.9 - Anemia, unspecified, I25.10 - Atherosclerotic heart disease of [place] coronary artery without angina pectoris Lipid Panel 6 Months D64.9 - Anemia, unspecified, I25.10 - Atherosclerotic heart disease of [place] coronary artery without angina pectoris AMB Hemoglobin A1c Today Z13.9 - Encounter for screening, unspecified Ferritin 6 Months D64.9 - Anemia, unspecified, I25.10 - Atherosclerotic heart disease of cur[place] coronary artery without angina pectoris Patient Instructions: Mcleod Bergamot 1000 mg daily Health screenings for women You should visit your health care provider from time to time, even if you are healthy. The purpose of these visits is to: Screen for medical issues Assess your risk for future medical problems Encourage a healthy lifestyle Update vaccinations and other preventive care services Help you get to know your provider in case of an illness Information Even if you feel fine, you should still see your provider for regular checkups. These visits can help you avoid problems in the future. For example, the only way to find out if you have high blood pressure is to have it checked regularly. High blood sugar and high cholesterol levels also may not have any symptoms in the early stages. A simple blood test can check for these conditions. There are specific times when you should see your provider or receive specific health screenings. The [place] Preventive Services Task Force publishes a list of recommended screenings. Below are screening guidelines for women ages 18 to 39. BLOOD PRESSURE SCREENING Your blood pressure should be checked at least once every 3 to 5 years if: Your blood pressure is in the normal range (top number less than 120 mm Hg and bottom number less than 80 mm Hg) You don't have risk factors for high blood pressure Ask your provider if you need your blood pressure checked more often if: The top number is 120 to 129 mm Hg or the bottom number is 70 to 79 mm Hg You have diabetes, heart disease, kidney problems, are overweight, or have certain other health conditions You have a first-degree relative with high blood pressure You are Black You had high blood pressure during a If the top number is 130 mm Hg or greater or the bottom number is 80 mm Hg or greater, this is considered stage 1 hypertension. Schedule an appointment with your provider to learn how you can reduce your blood pressure. Watch for blood pressure screenings in your area. Ask your provider if you can stop in to have your blood pressure checked. BREAST CANCER SCREENING Experts do not agree about the benefits of breast self-exams in finding breast cancer or saving lives. Talk to your provider about what is best for you. A screening mammogram is not recommended for most women under age 40. Your provider may discuss and recommend mammograms, MRI scans, or ultrasounds if you have an increased risk for breast cancer, such as: A mother or sister who had breast cancer at a young age (most often starting screening earlier than the age the close relative was diagnosed) You carry a high-risk genetic marker CERVICAL CANCER SCREENING Cervical cancer screening should start at age 21 years unless your provider advises otherwise. After the first test: Women ages 21 through 29 should have a Pap test every 3 years. Exoprts do not agree on whether HPV testing is recommended for this age group. Women ages 30 through 65 should be screened with either a Pap test every 3 years or the HPV test every 5 years or both tests every 5 years (called cotesting ). Women who have been treated for precancer (cervical dysplasia) should continue to have Pap tests for 20 years after treatment or until age 65, whichever is longer. If you have had your uterus and cervix removed (total hysterectomy), and you have not been diagnosed with cervical cancer or precancer (high grade cervical neoplasia), you do not need cervical cancer screening. CHOLESTEROL SCREENING Cholesterol screening should begin at: Age 45 for women with no known risk factors for coronary heart disease Age 20 for women with known risk factors for coronary heart disease Repeat cholesterol screening should take place: Every 5 years for women with normal cholesterol levels More often if changes occur in lifestyle (including weight gain and diet) More often if you have diabetes, heart disease, kidney problems, or certain other conditions DIABETES SCREENING You should be screened for diabetes starting at age 35 and then repeated every 3 years if you have no risk factors for diabetes. Screening may need to start earlier and be repeated more often if you have other risk factors for diabetes, such as: You have a first degree relative with diabetes. You are overweight or have obesity. You have high blood pressure, prediabetes, or a history of heart disease. Screening for diabetes should be done if you are planning to become and you are overweight and have other risk factors such as high blood pressure. DENTAL EXAM Go to the dentist once or twice every year for an exam and cleaning. Your dentist will evaluate if you need more frequent visits. EYE EXAM Have an eye exam every 5 to 10 years before age 40. If you have vision problems, have an eye exam every 2 years or more often if recommended by your provider. You should have an eye exam that includes an examination of your retina (back of your eye) at least every year if you have diabetes. IMMUNIZATIONS Commonly needed vaccines include: Flu shot: get one every year. COVID-19 vaccine: ask your provider what is best for you. Tetanus-diphtheria and acellular pertussis (Tdap) vaccine: have one at or after age 19 as one of your tetanus-diphtheria vaccines if you did not receive it as an adolescent. Tetanus-diphtheria: have a booster (or Tdap) every 10 years. Varicella vaccine: receive 2 doses if you never had chickenpox or the varicella vaccine. Hepatitis B vaccine: receive 2, 3, or 4 doses, depending on your exact circumstances. Measles, mumps, and rubella (MMR) vaccine: receive 1 to 2 doses if you are not already immune to MMR. Your provider can tell you if you are immune. Ask your provider about the human papillomavirus (HPV) vaccine if: You have not received the HPV vaccine in the past You have not completed the full vaccine series (you should catch up on this shot) Ask your provider if you should receive other immunizations if you have certain health problems that increase your risk for some diseases such as pneumonia. INFECTIOUS DISEASE SCREENING Women who are sexually active should be screened for chlamydia and gonorrhea up until age 25. Women 25 years and older should be screened for chlamydia and gonorrhea if at high risk. Screening for hepatitis C: All adults ages 18 to 79 should get a one-time test for hepatitis C. people should be screened at every . Screening for human immunodeficiency virus (HIV): All people ages 15 to 65 should get a one-time test for HIV. Depending on your lifestyle and medical history, you may also need to be screened for infections such as syphilis and HIV, as well as other infections. PHYSICAL EXAM All adults should visit their provider from time to time, even if they are healthy. The purpose of these visits is to: Screen for disease Assess your risk of future medical problems Encourage a healthy lifestyle Update your vaccinations and other preventive care services Maintain a relationship with a provider in case of an illness Your height, weight, and BMI should be checked at every exam. During your exam, your provider may ask you about: Depression and anxiety Diet and exercise Alcohol and tobacco use Safety issues, such as using seat belts, smoke detectors, and intimate partner violence Your medicines and risk for interactions SKIN SELF-EXAM Your provider may check your skin for signs of skin cancer, especially if you're at high risk, such as if you: Have had skin cancer before Have close relatives with skin cancer Have a weakened immune system OTHER SCREENING Talk with your provider about colon cancer screening if you have a strong family history of colon cancer or polyps, or if you have had inflammatory bowel disease or polyps yourself. Routine bone density screening of women under 40 is not recommended. Quality Reporting (2019) Adult ([facility] 138/2/) Smoking risk assessment performed?: Yes Patient Tobacco Use Status: Never used Tobacco Depression screening performed: Yes Screen Results: Yes Negative screen Systolic BP not done?: No Diastolic BP not done?: No BMI screening not done: No Sexual Activity Screening ([facility] 153) Sexually active?: Yes Immunizations ([facility] 147, 117) Annual Influenza Vaccine: Yes Measles Antibody Test: No Mumps Antibody Test: No Rubella Antibody Test: No Varicella Antibody Test: No Anti Hepatitis A IgG Antigen test: No Anti Hepatitis B Virus Surface Ab test: No Fall Risk Screening ([facility] 139) Last assessed Fall Risk: 02/13/25 Fall risk assessment: No Falls in past year Dementia Assessment ([facility] 149) Cognitive assessment recorded: Yes Assessment of cognition with standardized tool: Yes Ophthalmol:Cataracts Visual Acuity (133) Visual acuity exam performed: Yes Coding Level of Care Code Medicare Subsequent (G0439) Est Pt Level 4 (67092) Diagnoses Encounter for subsequent annual wellness visit (AWV) in Medicare patient Z00.00 ACP (advance care planning) Z71.89 History of mammogram Z92.89 History of colonoscopy Z98.890 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 transplanted heart: curyung heart Associated angina: without angina Mild anemia D64.9 CPT Codes Advance Care Planning - Time spent: 16-45 minutes ([id number]) Vision Screening - Vision Screenin - Vision Screening ([id number]) EKG - CPT: 42471-[id number], Complete ([id number]) Advance Care Planning Advance Care Planning discussion: Exists, not on file Date of discussion: 02/13/25 Who was present: self Forms completed: Health Care Proxy, MOLST and Living will Time spent: 16-45 minutes Actual minutes spent: 16
[2025-02-13 13:34] VITALS: BP 124/80; PULSE 74; RESP 13; TEMP 36.8; O2SAT 96; BMI 24.9
== END 2025-02-13 15:33 | disposition home or self-care (01) ==
LOC: HO.HMCFM 13:07
PROVIDERS: PCP Nurse Practitioner Family; Visit Provider Nurse Practitioner Family
DX: Z00.00 Encounter for general adult medical examination without abnormal findings (principal); I45.2 Bifascicular block; I25.10 Atherosclerotic heart disease of native coronary artery without angina pectoris; D64.9 Anemia, unspecified; Z71.89 Other specified counseling; Z13.9 Encounter for screening, unspecified

== ENCOUNTER → 2025-02-13 13:06 | Outpatient (BNVA) | payer MEDICARE, SELFPAY | PROVIDERS: PCP Nurse Practitioner Family; Visit Provider Nurse Practitioner Family | DX: Z00.00 Encounter for general adult medical examination without abnormal findings (principal); Z71.89 Other specified counseling; Z92.89 Personal history of other medical treatment; Z98.890 Other specified postprocedural states; I45.2 Bifascicular block; I25.10 Atherosclerotic heart disease of native coronary artery without angina pectoris; D64.9 Anemia, unspecified; E78.00 Pure hypercholesterolemia, unspecified; M85.80 Other specified disorders of bone density and structure, unspecified site; Z79.82 Long term (current) use of aspirin; Z79.899 Other long term (current) drug therapy | CPT/HCPCS: 83036; 93005; 99212; 99497 ==